=== PATIENT | male | born 1995 | race Caucasian/White ===

== ENCOUNTER → 2020-01-29 | Emergency (ER) | payer MEDICARE, MEDICAID | END | disposition home or self-care (01) | LOC: M ED 21:21 | DX: S16.1XXA Strain of muscle, fascia and tendon at neck level, initial encounter (principal); X58.XXXA Exposure to other specified factors, initial encounter; D68.51 Activated protein C resistance; J45.909 Unspecified asthma, uncomplicated; F17.210 Nicotine dependence, cigarettes, uncomplicated; Z88.1 Allergy status to other antibiotic agents; Z79.899 Other long term (current) drug therapy ==

== ENCOUNTER 2023-01-07 13:05 | Inpatient (IN) | payer MEDICAID, MEDICARE ==
[~2023-01-07] VITALS: Ht 167.6 cm; Wt 48.0 kg
[2023-01-07 14:34] LABS: HEMATOCRIT 40.5 % (42.0-52.0); MEAN CORPUSCULAR HEMOGLOBIN 29.9 pg (27.0-33.0); MEAN CORPUSCULAR HGB CONC 34.6 g/dl (32.0-36.5); MEAN CORPUSCULAR VOLUME 86.4 fl (80.0-96.0); PLATELET COUNT, AUTOMATED 185 10^3/uL (150-450); RED BLOOD COUNT 4.69 10^6/uL (4.30-6.10); WHITE BLOOD COUNT 8.1 10^3/uL (4.0-10.0)
[2023-01-07 15:07] LABS: ETHYL ALCOHOL (ETHANOL) < 0.003 % (0.000-0.010)
[2023-01-07 15:08] LABS: SALICYLATE LEVEL < 3.0 MG/DL (<30)
[2023-01-07 15:09] LABS: ACETAMINOPHEN LEVEL < 2.0 UG/ML (10.0-20.0); ALKALINE PHOSPHATASE 77 U/L (46-116); ALT/SGPT 12 U/L (7.0-40); AST/SGOT 12 U/L (<34); BILIRUBIN,DIRECT 0.4 MG/DL (<0.4); BILIRUBIN,TOTAL 1.3 MG/DL (0.3-1.2); BLOOD UREA NITROGEN 19 MG/DL (9-23); CALCIUM LEVEL 9.5 MG/DL (8.5-10.1); CARBON DIOXIDE LEVEL 28 MMOL/L (20-31); CHLORIDE LEVEL 103 MMOL/L (98-107); GLOMERULAR FILTRATION RATE > 60.0 (>60); GLUCOSE, FASTING 91 MG/DL (60-100); POTASSIUM SERUM 4.2 MMOL/L (3.5-5.1); SODIUM LEVEL 138 MMOL/L (136-145); TOTAL PROTEIN 7.8 G/DL (5.7-8.2)
[2023-01-07 15:11] LABS: THYROID STIMULATING HORMONE 1.356 uIU/ML (0.55-4.78)
[2023-01-07 15:56] LABS: AMPHETAMINES LEVEL URINE NEGATIVE (NEGATIVE); BARBITURATES URINE NEGATIVE (NEGATIVE); BENZODIAZEPINES URINE NEGATIVE (NEGATIVE); COCAINE METABOLITE URINE NEGATIVE (NEGATIVE); METHADONE URINE NEGATIVE (NEGATIVE); OPIATES URINE NEGATIVE (NEGATIVE); PHENCYCLIDINE URINE NEGATIVE (NEGATIVE)
[2023-01-07 15:58] LABS: CANNABINOIDS URINE POSITIVE (NEGATIVE)
[2023-01-07] MEDS ORDERED: MOM 30ML SUSPENSION UDC PO PRN (20:05)
[2023-01-07] MEDS ORDERED: NICOTINE 21MG/24HR 1 EA TRANSDERMAL TD PRN (20:05)
[2023-01-07] MEDS ORDERED: IBUPROFEN 400MG TAB PO PRN (20:05)
[2023-01-07] MEDS ORDERED: traZODone 50 MG TAB PO PRN (20:05)
[2023-01-07] MEDS ORDERED: MAALOX 30 ML SUSP *UDC PO PRN (20:05)
[2023-01-07] MEDS ORDERED: LORazepam 1 MG TAB PO PRN (20:05)
[2023-01-07] MEDS ORDERED: diphenhydrAMINE 25MG CAP PO PRN (20:05)
[2023-01-07] MEDS ORDERED: OLANZapine ORAL DISINTEGRATING TAB 5MG PO PRN (20:05)
[2023-01-07] MEDS ORDERED: ACETAMINOPHEN TAB 650MG DOSE (2X325MG) PO PRN (20:05)
[2023-01-07] MEDS ORDERED: HOME MED LIST COMPLETE! XX SCH (21:00)
[2023-01-07 22:08] VITALS: BP 106/76; TEMP 97.9
[2023-01-08 06:35] VITALS: BP 129/82; TEMP 97.8; O2SAT 96
[2023-01-08 16:48] VITALS: BP 116/58; TEMP 97.6; O2SAT 96
[2023-01-09 06:36] VITALS: BP 102/56; TEMP 98.2; O2SAT 100
[2023-01-09 18:05] VITALS: BP 115/68; TEMP 97.4
[2023-01-10 06:12] VITALS: BP 150/89; TEMP 97; O2SAT 97
[2023-01-10 17:37] VITALS: BP 134/77; TEMP 97.6; O2SAT 97
[2023-01-11 06:22] VITALS: BP 103/60; TEMP 97.3; O2SAT 99
== END 2023-01-11 12:06 | disposition home or self-care (01) | DRG 881 ==
LOC: M ED 13:05 → M ED INP 20:03 → M PSY 21:01
PROVIDERS: ADMIT Psychiatry & Neurology Psychiatry; ATTEND Student in an Organized Health Care Education/Training Program
DX: F32.A Depression, unspecified (principal); F84.5 Asperger's syndrome; F43.10 Post-traumatic stress disorder, unspecified; Z59.01 Sheltered homelessness; Z88.2 Allergy status to sulfonamides; Z88.8 Allergy status to other drugs, medicaments and biological substances; Z91.010 Allergy to peanuts; F90.9 Attention-deficit hyperactivity disorder, unspecified type; Z62.811 Personal history of psychological abuse in childhood; Z62.812 Personal history of neglect in childhood